=== PATIENT | male | born 1965 | race Caucasian/White ===

== ENCOUNTER 2020-07-13 17:30 | Emergency (ER) | payer BC, SELFPAY ==
[2020-07-13 17:40] VITALS: BP 122/75; PULSE 89; RESP 18; O2SAT 97
--- NOTE | 2020-07-13 17:45 | DI.RAD_ITS ---
EXAM: XR KNEE RT 3V AP,LAT,YUMI CLINICAL HISTORY: Right leg Injury, R/O fracture TECHNIQUE: COMPARISON: No exams were available for comparison FINDINGS: Three views were obtained. There is a moderate joint effusion. There is a fracture of the lateral a spect of the lateral tibial plateau consistent with Segond fracture. There is mild displacement. No additional fracture identified. IMPRESSION: RADIATION DOSE DELIVERED: Total DLP
--- NOTE | 2020-07-13 17:58 | ED.GENADUL_ITS ---
Discharge Plan Disposition Patient Disposition: HOME Condition: Stable Discharge Details Clinical Impression: Closed fracture of right tibial plateau Primary Care Provider: Fern,Local ED Provider: Joya Bejarano Home Meds and New Rx's Prescriptions: New ibuprofen 800 mg tablet 800 mg PO Q8H PRN (Reason: pain) Qty: 20 RF: 0 No Action valsartan 40 mg Tablet 40 mg PO DAILY RF: 0 Januvia 100 mg Tablet 100 mg PO DAILY RF: 0 Ozempic 0.25 mg or 0.5 mg(2 mg/1.5 mL) Pen Injector 0.5 mg SUBCUT QWEEK RF: 0 Discharge Instructions Instructions: Leg Fracture (ED) Additional Instructions: The x-rays today show a right lateral tibial plateau fracture versus a LCL ligament injury. Please wear the Sergio wrap and knee immobilizer as much as possible until follow-up with orthopedics of your choice. Rest, ice, compression, elevation while sitting or laying down. Please see clinical informatics specialist within 1 week. Return or be seen sooner for any worsening pain, swelling, problems with circulation to your leg. Please be seen sooner if you have a cold blue numb tingly lower extremity. Medical Decision Making 55-year-old male presents to the ER with chief complaints of right leg pain and swelling status post a skiing injury prior to arrival. He states that he fell on his binding did not release he was able to get up and ski somewhat but [place] mountain by skill training program coordinator. He denies hitting his head, no loss of consciousness denies any neck or back pain no other injuries. He does have some swelling just laterally to his proximal tib-fib area. No obvious deformity noted to his knee. Distal pulses are intact, extremities pink warm dry he does have full range of motion noted to his ankle and foot. He does have approximately 45 degrees of active range of motion noted to his knee without pain. He took 2 extra strength Tylenol prior to arrival. X-ray right knee ordered to rule out fracture. Imaging protocol: XR Right knee. Views: 3 views. COMPARISON: No relevant prior studies available. FINDINGS: Bones/joints: Acute fracture, lateral tibial plateau, with minimal lateral distraction of the dominant fracture fragment. Suspected slight intra-articular involvement. No dislocation. Moderate amount of fluid in the joint which may be hemorrhagic, although there is no janet lipohemarthrosis identified radiographically. IMPRESSION: 1. Acute fracture, lateral tibial plateau, with minimal lateral distraction of the dominant fracture fragment. Suspected slight intra-articular involvement. 2. Moderate amount of fluid in the joint which may be hemorrhagic, although there is no janet lipohemarthrosis identified radiographically. Thank you for allowing us to participate in the care of your patient. Dictated and Authenticated by: Beatriz Barton MD 1940: Discussed x-rays with orthopedic doctor on-call Morales Pearson who recommends Sergio wrap knee immobilizer and crutches, follow-up with orthopedics in 1 week. Patient is going home back to [place] tomorrow also so he will follow-up at home. Disc with radioogic images was made by DI and given to patient with radiology images on it. Discussed home care including rest ice compression elevation, alternating ibuprofen and Tylenol as needed for pain and swelling patient verbalized understanding. Discussed using knee immobilizer as much as possible. Discussed strict return instructions including increased swelling and/or pain not relieved by medications and/or circulation problems distally to the injury patient verbalized understanding. Patient remained hemodynamically stable throughout stay. This text was generated using [employer] system, please disregard any oddities of phrase or misspellings. HPI General Mode of arrival: wheelchair . Date/Time Provider Initiated Documentation: 07/13/20 17:52 . Limitations to Documentation: no limitations . Information obtained by: patient . HPI Narrative: 55-year-old male presents to the ER with chief complaints of right leg pain and swelling status post a skiing injury prior to arrival. He states that he fell on his binding did not release he was able to get up and ski somewhat but was [place] the mountain by skill training program coordinator. He denies hitting his head, no loss of consciousness denies any neck or back pain no other injuries. He does have some swelling just laterally to his proximal tib-fib area. No obvious deformity noted to his knee. Distal pulses are intact, extremities pink warm dry he does have full range of motion noted to his ankle and foot. He does have approximately 45 degrees of active range of motion noted to his knee without pain. He took 2 extra strength Tylenol prior to arrival. Related Data Home Medications Medication Instructions Recorded Confirmed ibuprofen 800 mg PO Q8H PRN #20 tab 07/13/20 semaglutide [Ozempic] 0.5 mg SUBCUT QWEEK 07/13/20 07/13/20 sitagliptin [Januvia] 100 mg PO DAILY 07/13/20 07/13/20 valsartan 40 mg PO DAILY 07/13/20 07/13/20 Previous Rx's Medication Instructions Recorded ibuprofen 800 mg PO Q8H PRN #20 tab 07/13/20 Allergies Allergy/AdvReac Type Severity Reaction Status Date / Time No Known Allergies Allergy Unverified 07/13/20 17:45 General Stated Complaint: Orthopedic JOSE MANUEL: 4 Review of Systems Narrative: Constitutional: Negative for weight loss, alert and oriented, well groomed, normal body habitus, appears comfortable. HEENT: Denies trauma, headaches, blurry vision, nasal discharge, sore throat, trouble swallowing. Chest: Denies chest pain, palpitations, irregular rhythm, hypertension. Respiratory: Denies Shortness of breath, cough, hemoptysis. GI: Denies abdominal pain, nausea, vomiting, diarrhea, constipation. : Denies dysuria, hematuria, flank pain, rectal bleeding. Neuro: Denies dizziness, blurry vision, weakness, syncope, headache or facial numbness. Hematologic: Denies easy bruising, intolerance to heat or cold, hair loss. PFSH Social History Smoking/Tobacco Use Status: Never Smoking risk assessment performed?: Yes Alcohol Intake: current Alcohol Intake frequency: holidays/special occasions only Drug use: Never Substance use type: does not use Do you feel safe at home: Yes Do you feel safe in your relationship?: Yes Exam Narrative Exam Narrative: Constitutional: Alert and oriented x3. Appears stated age. Normal body habitus. Head: Normocephalic, no trauma. Eyes: Pupils PERRLA, Red reflex noted, EOM's intact. Eyelids symmetrical without lesions, discharge, or swelling. ENT: External ear normal to inspection, no mastoid TTP, swelling, or erythema. Chest: RRR, Normal S1, S2, distal pulses intact. Resp: Lungs clear to auscultation bilaterally, no wheezes, rales, or rhonchi. Musculoskeletal: Unable to assess gait, patient has some swelling to lateral lower extremity just distally to knee joint. He does have tenderness to palpation lateral joint space. Negative anterior posterior drawer test, he does have some tenderness with active flexion. Intact dorsal pedal pulses, full range of motion noted to his ankle joint and toes. Capillary refill less than 2 seconds distally to the injury. Skin: No suspicious rashes or lesions. Capillary refill less than 2 sec. Neurologic: Cranial nerves II-XII intact. Alert and oriented x 3. DTR's intact. Hematologic/Lymphatic: No ecchymosis, no lymphadenopathy. Course Vital Signs Vital signs: Vital Signs Pulse 89 07/13/20 17:40 Respiratory Rate 18 07/13/20 17:40 Blood Pressure 122/75 07/13/20 17:40 Pulse Oximetry 97 07/13/20 17:40 Pulse 89 07/13/20 17:40 Respiratory Rate 18 07/13/20 17:40 Respiratory Effort Non-Labored 07/13/20 17:50 Blood Pressure 122/75 07/13/20 17:40 Blood Pressure Position Sitting 07/13/20 17:40 Pulse Oximetry 97 07/13/20 17:40 Oxygen Delivery Method Room Air 07/13/20 17:40 Oxygen Flow Rate 0 07/13/20 17:40 Pain Level 3 07/13/20 17:40
--- NOTE | 2020-07-13 19:00 | DI.RAD_ITS ---
EXAM: XR TIB/FIB RT CLINICAL HISTORY: Leg pain, swelling TECHNIQUE: COMPARISON: No exams were available for comparison FINDINGS: Three views were obtained. The Segond fracture of the lateral tibial plateau noted on radiographs of the knee is again seen. No additional fracture identified. IMPRESSION: RADIATION DOSE DELIVERED: Total DLP
--- NOTE | 2020-07-13 19:09 | DI.VRAD_ITS ---
PROCEDURE INFORMATION: Exam: XR Right Knee Exam date and time: 07/13/2020 18:48 Age: 55 years old Clinical indication: Patient HX: Patient fell skiing today. Knee pain right. TECHNIQUE: Imaging protocol: XR Right knee. Views: 3 views. COMPARISON: No relevant prior studies available. FINDINGS: Bones/joints: Acute fracture, lateral tibial plateau, with minimal lateral distraction of the dominant fracture fragment. Suspected slight intra-articular involvement. No dislocation. Moderate amount of fluid in the joint which may be hemorrhagic, although there is no janet lipohemarthrosis identified radiographically. IMPRESSION: 1. Acute fracture, lateral tibial plateau, with minimal lateral distraction of the dominant fracture fragment. Suspected slight intra-articular involvement. 2. Moderate amount of fluid in the joint which may be hemorrhagic, although there is no janet lipohemarthrosis identified radiographically. Dictated and Authenticated by: Beatriz Barton MD. Ordering:MARJORIE Hinson MD
--- NOTE | 2020-07-13 19:51 | DI.VRAD_ITS ---
PROCEDURE INFORMATION: Exam: XR Right Tibia and Fibula Exam date and time: 07/13/2020 19:33 Age: 55 years old Clinical indication: Knee; Right; Patient HX: Leg pain, swelling; Injured skiing TECHNIQUE: Imaging protocol: XR Right tibia and fibula. Views: 2 views. COMPARISON: CR XR KNEE RT 3V AP,LAT,YUMI 07/13/2020 18:44 FINDINGS: Bones/joints: Proximal lateral tibial fracture. Please see knee films. The remainder of the tibia is intact. No fibular fracture is seen. Soft tissues: Soft tissue swelling proximally. IMPRESSION: Proximal lateral tibial fracture. Please see knee films. The remainder of the tibia is intact. No fibular fracture is seen. Dictated and Authenticated by: Beatriz Barton MD. Ordering:MARJORIE Hinson MD
== END 2020-07-13 20:26 | disposition home or self-care (01) ==
PROVIDERS: Emergency Provider Registered Nurse Emergency
DX: S82.141A Displaced bicondylar fracture of right tibia, initial encounter for closed fracture (principal); W00.0XXA Fall on same level due to ice and snow, initial encounter; Y93.23 Activity, snow (alpine) (downhill) skiing, snowboarding, sledding, tobogganing and snow tubing
CPT/HCPCS: 73562; 99284; 73590; 99283